=== PATIENT | male | born 1930 | race African-American/Black ===

== ENCOUNTER 2019-07-19 15:32 | Inpatient (IN) ==
[2019-07-19 16:10] LABS: Basophils # 0.1 K/mcL (0.0-0.2); Basophils % 1.1 %; Eosinophils # 0.2 K/mcL (0.0-0.6); Eosinophils % 3.2 %; Hematocrit 35.6 % (37.5-50.1); Hemoglobin 11.6 g/dL (12.9-16.9); Immature Granulocytes % 0.6 % (0-4); Lymphocytes # 1.7 K/mcL (0.6-4.6); Lymphocytes % 32.3 %; Mean Corpuscular HGB Conc 32.6 g/dL (31.6-35.5); Mean Corpuscular Hemoglobin 34.9 pg (28.0-33.3); Mean Corpuscular Volume 107.2 fL (83.0-100.0); Mean Platelet Volume 10.3 fL (9.4-12.4); Monocytes # 0.5 K/mcL (0.0-1.3); Monocytes % 9.3 %; Neutrophils # 2.8 K/mcL (1.6-8.9); Nucleated Red Blood Cells 0.8 /100 WBC (0); Platelet Count 291 K/mcL (140-400); Red Blood Count 3.32 M/mcL (4.19-5.50); Red Cell Distribution Width 13.9 % (11.5-14.5); Segmented Neutrophils % 53.5 %; White Blood Count 5.3 K/mcL (4.3-11.1)
[2019-07-19 16:10] LABS: Bilirubin,Urine Negative (Negative); Blood,Urine Negative (Negative); Clarity,Urine Clear (Clear); Color,Urine Yellow (Yellow); Glucose,Urine (UA) >=1000 mg/dL (Normal); Ketones,Urine Negative (Negative); Leukocyte Esterase,Urine Negative (Negative); Nitrite,Urine Negative (Negative); Protein,Urine Negative (Neg-Trace); Specific Gravity,Urine > 1.030 (1.010-1.025); Urobilinogen,Urine Normal (Normal)
[2019-07-19 16:20] LABS: Amphetamine Screen,Urine Negative ng/mL (Cutoff=1000); Barbiturate Screen,Urine Negative ng/mL (Cutoff=200); Benzodiazepines Screen,Urine Negative ng/mL (Cutoff=200); Cannabinoid Screen,Urine Negative ng/mL (Cutoff = 50); Cocaine Screen,Urine Negative ng/mL (Cutoff= 300); Opiate Screen,Urine Negative ng/mL (Cutoff=300); Phencyclidine Screen,Urine Negative ng/mL (Cutoff=25)
[2019-07-19 16:33] LABS: Alanine Aminotransferase 15 Units/L (7-52); Albumin 4.1 g/dL (3.5-5.7); Albumin/Globulin Ratio 1.4 (1.1-2.2); Alkaline Phosphatase 80 Units/L (34-104); Aspartate Amino Transferase 15 Units/L (13-39); BUN/Creatinine Ratio 10 (6-26); Bilirubin,Direct 0.1 mg/dL (0.0-0.2); Bilirubin,Indirect 0.3 mg/dL (0.0-1.0); Bilirubin,Total 0.4 mg/dL (0.3-1.0); Blood Urea Nitrogen 13 mg/dL (8-23); Calcium 9.4 mg/dL (8.6-10.3); Carbon Dioxide 23 mEq/L (23-29); Chloride 100 mEq/L (98-107); Glucose 409 mg/dL (70-105); Osmolality,Calculated 295 (280-300); Potassium 4.1 mEq/L (3.5-5.1); Sodium 134 mEq/L (136-145); Total Protein 7.1 g/dL (6.4-8.9); Troponin I < 0.03 ng/mL (< 0.04); eGFR For African Americans > 60 (> 60); eGFR For Non-African Americans 52 (> 60)
[2019-07-19 17:22] LABS: Ethanol < 10 mg/dL (Less than 10)
[2019-07-19] MEDS ORDERED: 0.9 % Sodium Chloride 1,000 ML IVC ONE (17:30)
[2019-07-19] MEDS ORDERED: Naloxone 0.4 MG/ML INJ IVP PRN (17:39)
[2019-07-19] MEDS ORDERED: D5% in Water 1,000 ML IVC PRN (18:04)
[2019-07-19] MEDS ORDERED: Dextrose Gel 15 GM/37.5 ML TUBE PO PRN ×2 (18:04)
[2019-07-19] MEDS ORDERED: *HR* Dextrose 50 % in Water (Syg) 50 ML SYRINGE IVP PRN (18:04)
[2019-07-19 19:04] LABS: Estimated Average Glucose 260 mg/dl
[2019-07-19] MEDS: Insulin LISPRO 300 UNITS/3 ML VIAL SQ SCH ×2 (20:06→20:17)
[2019-07-19] MEDS: QUEtiapine Fumarate 25 MG TABLET PO SCH (20:17)
[2019-07-19] MEDS: 0.9 % Sodium Chloride 1,000 ML IVC SCH (20:29)
[2019-07-19] MEDS ORDERED: *HR* LORazepam 2 MG/ML VIAL IM STA (21:24)
[2019-07-19] MEDS ORDERED: *HR* LORazepam 2 MG/ML VIAL ONE (21:26)
[2019-07-19] MEDS ORDERED: *HR* LORazepam 0.5 MG TABLET PO ONE (23:53)
[2019-07-20] MEDS ORDERED: OLANZapine 5 MG TAB.RAPDIS PO ONE (04:52)
[2019-07-20 04:56] LABS: Basophils # 0.1 K/mcL (0.0-0.2); Eosinophils # 0.3 K/mcL (0.0-0.6); Eosinophils % 4.8 %; Hematocrit 30.1 % (37.5-50.1); Immature Granulocytes % 0.5 % (0-4); Lymphocytes # 2.2 K/mcL (0.6-4.6); Lymphocytes % 38.2 %; Mean Corpuscular HGB Conc 33.2 g/dL (31.6-35.5); Mean Corpuscular Hemoglobin 35.2 pg (28.0-33.3); Mean Platelet Volume 9.7 fL (9.4-12.4); Monocytes # 0.5 K/mcL (0.0-1.3); Monocytes % 8.4 %; Neutrophils # 2.8 K/mcL (1.6-8.9); Nucleated Red Blood Cells 0.5 /100 WBC (0); Platelet Count 237 K/mcL (140-400); Red Blood Count 2.84 M/mcL (4.19-5.50); Red Cell Distribution Width 13.7 % (11.5-14.5); Segmented Neutrophils % 47.1 %; White Blood Count 5.9 K/mcL (4.3-11.1)
[2019-07-20 05:13] LABS: BUN/Creatinine Ratio 13 (6-26); Blood Urea Nitrogen 13 mg/dL (8-23); Calcium 8.6 mg/dL (8.6-10.3); Carbon Dioxide 25 mEq/L (23-29); Chloride 104 mEq/L (98-107); Glucose 165 mg/dL (70-105); Osmolality,Calculated 286 (280-300); Potassium 3.8 mEq/L (3.5-5.1); Sodium 136 mEq/L (136-145); eGFR For African Americans > 60 (> 60); eGFR For Non-African Americans > 60 (> 60)
[2019-07-20] MEDS: 0.9 % Sodium Chloride 1,000 ML IVC SCH ×2 (09:26→21:50)
[2019-07-20] MEDS: Insulin LISPRO 300 UNITS/3 ML VIAL SQ SCH ×4 (09:29→21:51)
[2019-07-20] MEDS ORDERED: Acetaminophen 325 MG TABLET PO PRN (13:17)
[2019-07-20 14:35] LABS: % Iron Saturation 25 % (20-55); Iron 69 mcg/dL (65-175); Transferrin 201 mg/dL (203-362)
[2019-07-20 14:45] LABS: Ferritin 243 ng/mL (20-250)
[2019-07-20 14:50] LABS: Folate 14.1 ng/mL (3.0-16.0)
[2019-07-20] MEDS ORDERED: OLANZapine 5 MG TAB.RAPDIS PO PRN (16:46)
[2019-07-20] MEDS: QUEtiapine Fumarate 25 MG TABLET PO SCH (21:40)
[2019-07-21] MEDS: *HR* LORazepam 2 MG/ML VIAL IM ONE ×2 (03:01→04:24)
[2019-07-21] MEDS ORDERED: *HR* LORazepam 0.5 MG TABLET PO PRN (03:30)
[2019-07-21] MEDS ORDERED: *HR* LORazepam 2 MG/ML VIAL ONE (04:09)
[2019-07-21] MEDS ORDERED: *HR* LORazepam 2 MG/ML VIAL IVP ONE (04:42)
[2019-07-21] MEDS ORDERED: OLANZapine 5 MG TAB.RAPDIS PO SCH (05:00)
[2019-07-21] MEDS: Insulin LISPRO 300 UNITS/3 ML VIAL SQ SCH ×4 (10:36→21:03)
[2019-07-21] MEDS: lisinopriL 5 MG TABLET PO SCH (13:16)
[2019-07-21] MEDS: Metoprolol XL (24 HR) Succ 25 MG TAB.ER.24H PO SCH (13:17)
[2019-07-21] MEDS: Cyanocobalamin (B-12) 1,000 MCG TABLET PO SCH (13:17)
[2019-07-21] MEDS: Aspirin Enteric Coated 81 MG Tablet PO SCH (13:17)
[2019-07-21] MEDS: QUEtiapine Fumarate 25 MG TABLET PO SCH ×2 (13:17→21:02)
[2019-07-22] MEDS: Haloperidol Lactate 5 MG/ML VIAL IM PRN ×3 (01:30→21:56)
[2019-07-22] MEDS: Insulin LISPRO 300 UNITS/3 ML VIAL SQ SCH ×3 (07:59→16:59)
[2019-07-22] MEDS: Aspirin Enteric Coated 81 MG Tablet PO SCH (08:00)
[2019-07-22] MEDS: lisinopriL 5 MG TABLET PO SCH (08:00)
[2019-07-22] MEDS: QUEtiapine Fumarate 25 MG TABLET PO SCH ×2 (08:01→19:57)
[2019-07-22] MEDS: Metoprolol XL (24 HR) Succ 25 MG TAB.ER.24H PO SCH (08:01)
[2019-07-22] MEDS: Cyanocobalamin (B-12) 1,000 MCG TABLET PO SCH (08:01)
[2019-07-22 20:13] VITALS: BP 125/75
== END 2019-07-22 21:58 | DRG 57 ==
LOC: EMEROOARM 15:32 → 3ANU 15:32 → SUATTDRO 18:00 → 3ANU 18:46
PROVIDERS: ADMIT Internal Medicine; ATTEND Family Medicine

== ENCOUNTER 2019-09-08 22:36 | Inpatient (IN) ==
[2019-09-08 23:42] LABS: Bilirubin,Urine Small (Negative); Blood,Urine Large (Negative); Clarity,Urine Clear (Clear); Color,Urine Yellow (Yellow); Glucose,Urine (UA) Normal (Normal); Ketones,Urine Trace mg/dL (Negative); Leukocyte Esterase,Urine Negative (Negative); Nitrite,Urine Negative (Negative); Protein,Urine Trace mg/dL (Neg-Trace); Specific Gravity,Urine 1.026 (1.010-1.025); Urobilinogen,Urine Normal (Normal)
[2019-09-08 23:42] LABS: Amphetamine Screen,Urine Negative ng/mL (Cutoff=1000); Barbiturate Screen,Urine Negative ng/mL (Cutoff=200); Benzodiazepines Screen,Urine Negative ng/mL (Cutoff=200); Cannabinoid Screen,Urine Negative ng/mL (Cutoff = 50); Cocaine Screen,Urine Negative ng/mL (Cutoff= 300); Opiate Screen,Urine Negative ng/mL (Cutoff=300); Phencyclidine Screen,Urine Negative ng/mL (Cutoff=25)
[2019-09-08 23:50] LABS: Bacteria,Urine None Seen per hpf (None-Few); Hyaline Casts,Urine Few per lpf (None-Few); Squamous Epithelial Cell,Urine Many per lpf (None-Few)
[2019-09-09 00:02] LABS: RBC,Urine 0-3 per hpf (0-3); WBC,Urine TNTC per hpf (0-3)
[2019-09-09 00:02] LABS: Basophils % 0.6 %; Eosinophils # 0.1 K/mcL (0.0-0.6); Eosinophils % 1.6 %; Hematocrit 28.6 % (37.5-50.1); Hemoglobin 8.9 g/dL (12.9-16.9); Immature Granulocytes % 0.6 % (0-4); Lymphocytes % 15.1 %; Mean Corpuscular HGB Conc 31.1 g/dL (31.6-35.5); Mean Corpuscular Hemoglobin 34.4 pg (28.0-33.3); Mean Corpuscular Volume 110.4 fL (83.0-100.0); Mean Platelet Volume 11.2 fL (9.4-12.4); Monocytes # 0.5 K/mcL (0.0-1.3); Monocytes % 8.5 %; Neutrophils # 4.7 K/mcL (1.6-8.9); Nucleated Red Blood Cells 0.5 /100 WBC (0); Platelet Count 156 K/mcL (140-400); Red Blood Count 2.59 M/mcL (4.19-5.50); Red Cell Distribution Width 16.7 % (11.5-14.5); Segmented Neutrophils % 73.6 %; White Blood Count 6.4 K/mcL (4.3-11.1)
[2019-09-09 00:28] LABS: Acetaminophen < 10 mcg/mL (10-20); Ethanol < 10 mg/dL (Less than 10); Salicylate < 2.5 mg/dL (15.0-30.0); Troponin I < 0.03 ng/mL (< 0.04)
[2019-09-09 00:38] LABS: Anisocytosis 1+ (Not Present); Macrocytosis Present (Not Present)
[2019-09-09 00:39] LABS: Platelet Estimate Normal (Normal)
[2019-09-09 00:41] LABS: BUN/Creatinine Ratio 22 (6-26); Blood Urea Nitrogen 28 mg/dL (8-23); Calcium 8.8 mg/dL (8.6-10.3); Carbon Dioxide 25 mEq/L (23-29); Chloride 100 mEq/L (98-107); Glucose 180 mg/dL (70-105); Osmolality,Calculated 288 (280-300); Potassium 5.9 mEq/L (3.5-5.1); Sodium 134 mEq/L (136-145); eGFR For African Americans > 60 (> 60); eGFR For Non-African Americans 53 (> 60)
[2019-09-09] MEDS ORDERED: Haloperidol Lactate 5 MG/ML VIAL IM STA ×2 (01:07→16:22)
[2019-09-09] MEDS ORDERED: Cefdinir 300 MG CAPSULE PO ONE (02:17)
[2019-09-09 02:42] LABS: BUN/Creatinine Ratio 22 (6-26); Blood Urea Nitrogen 27 mg/dL (8-23); Calcium 9.1 mg/dL (8.6-10.3); Carbon Dioxide 26 mEq/L (23-29); Chloride 100 mEq/L (98-107); Glucose 163 mg/dL (70-105); Osmolality,Calculated 285 (280-300); Potassium 5.4 mEq/L (3.5-5.1); Sodium 133 mEq/L (136-145); eGFR For African Americans > 60 (> 60); eGFR For Non-African Americans 55 (> 60)
[2019-09-09] MEDS ORDERED: Naloxone 0.4 MG/ML INJ IVP PRN (04:45)
[2019-09-09] MEDS ORDERED: *HR* Dextrose 50 % in Water (Syg) 50 ML SYRINGE IVP PRN (04:48)
[2019-09-09] MEDS ORDERED: Dextrose Gel 15 GM/37.5 ML TUBE PO PRN ×2 (04:48)
[2019-09-09] MEDS ORDERED: D5% in Water 1,000 ML IVC PRN (04:48)
[2019-09-09] MEDS: Insulin LISPRO 300 UNITS/3 ML VIAL SQ SCH ×4 (08:05→20:17)
[2019-09-09] MEDS: risperiDONE 1 MG TABLET PO SCH (09:19)
[2019-09-09] MEDS: QUEtiapine Fumarate 25 MG TABLET PO SCH ×2 (09:19→20:10)
[2019-09-09] MEDS: Aspirin Enteric Coated 81 MG Tablet PO SCH (09:19)
[2019-09-09] MEDS: Metoprolol XL (24 HR) Succ 25 MG TAB.ER.24H PO SCH (09:19)
[2019-09-09] MEDS: Cyanocobalamin (B-12) 1,000 MCG TABLET PO SCH (09:19)
[2019-09-09 09:37] LABS: BUN/Creatinine Ratio 21 (6-26); Blood Urea Nitrogen 24 mg/dL (8-23); Calcium 9.2 mg/dL (8.6-10.3); Carbon Dioxide 27 mEq/L (23-29); Chloride 99 mEq/L (98-107); Glucose 136 mg/dL (70-105); Osmolality,Calculated 282 (280-300); Potassium 4.9 mEq/L (3.5-5.1); Sodium 133 mEq/L (136-145); eGFR For African Americans > 60 (> 60); eGFR For Non-African Americans > 60 (> 60)
[2019-09-09] MEDS ORDERED: *HR* LORazepam 1 MG TABLET PO ONE (15:32)
[2019-09-09] MEDS ORDERED: *HR* LORazepam 2 MG/ML VIAL IM STA (15:37)
[2019-09-09] MEDS ORDERED: *HR* LORazepam 2 MG/ML VIAL ONE (15:38)
[2019-09-09] MEDS: Cefdinir 300 MG CAPSULE PO SCH (16:29)
[2019-09-09] MEDS ORDERED: Haloperidol Lactate 5 MG/ML VIAL IM ONE (18:30)
[2019-09-09] MEDS: traZODone 50 MG TABLET PO SCH (20:10)
[2019-09-09] MEDS: Divalproex (24 HR) 500 MG TABLET PO SCH (20:10)
[2019-09-10] MEDS: Cefdinir 300 MG CAPSULE PO SCH ×2 (04:10→15:16)
[2019-09-10] MEDS ORDERED: *HR* LORazepam 2 MG/ML VIAL IM STA (04:22)
[2019-09-10] MEDS: Metoprolol XL (24 HR) Succ 25 MG TAB.ER.24H PO SCH ×2 (09:33→09:47)
[2019-09-10] MEDS: risperiDONE 1 MG TABLET PO SCH ×2 (09:33→09:47)
[2019-09-10] MEDS: Aspirin Enteric Coated 81 MG Tablet PO SCH ×2 (09:34→09:47)
[2019-09-10] MEDS: Cyanocobalamin (B-12) 1,000 MCG TABLET PO SCH ×2 (09:34→09:48)
[2019-09-10] MEDS: Insulin LISPRO 300 UNITS/3 ML VIAL SQ SCH ×4 (09:34→20:33)
[2019-09-10] MEDS: QUEtiapine Fumarate 25 MG TABLET PO SCH ×3 (09:36→20:33)
[2019-09-10] MEDS: Haloperidol Lactate 5 MG/ML VIAL IM PRN ×3 (09:55→23:15)
[2019-09-10] MEDS: *HR* LORazepam 2 MG/ML VIAL IM PRN ×3 (11:23→23:16)
[2019-09-10] MEDS: Divalproex (24 HR) 500 MG TABLET PO SCH (20:33)
[2019-09-10] MEDS: traZODone 50 MG TABLET PO SCH (20:33)
[2019-09-11 02:45] LABS: Hematocrit 30.5 % (37.5-50.1); Hemoglobin 9.7 g/dL (12.9-16.9); Mean Corpuscular HGB Conc 31.8 g/dL (31.6-35.5); Mean Corpuscular Hemoglobin 33.8 pg (28.0-33.3); Mean Corpuscular Volume 106.3 fL (83.0-100.0); Mean Platelet Volume 11.1 fL (9.4-12.4); Platelet Count 167 K/mcL (140-400); Red Blood Count 2.87 M/mcL (4.19-5.50); Red Cell Distribution Width 15.7 % (11.5-14.5); White Blood Count 4.3 K/mcL (4.3-11.1)
[2019-09-11] MEDS: Cefdinir 300 MG CAPSULE PO SCH ×2 (02:57→15:28)
[2019-09-11 03:05] LABS: BUN/Creatinine Ratio 17 (6-26); Blood Urea Nitrogen 17 mg/dL (8-23); Calcium 8.8 mg/dL (8.6-10.3); Carbon Dioxide 24 mEq/L (23-29); Chloride 103 mEq/L (98-107); Glucose 129 mg/dL (70-105); Osmolality,Calculated 283 (280-300); Potassium 4.4 mEq/L (3.5-5.1); Sodium 135 mEq/L (136-145); eGFR For African Americans > 60 (> 60); eGFR For Non-African Americans > 60 (> 60)
[2019-09-11] MEDS: Haloperidol Lactate 5 MG/ML VIAL IM PRN ×2 (03:22→16:55)
[2019-09-11] MEDS: *HR* LORazepam 2 MG/ML VIAL IM PRN ×2 (03:22→16:56)
[2019-09-11] MEDS: QUEtiapine Fumarate 25 MG TABLET PO SCH ×2 (08:37→21:08)
[2019-09-11] MEDS: risperiDONE 1 MG TABLET PO SCH (08:37)
[2019-09-11] MEDS: Metoprolol XL (24 HR) Succ 25 MG TAB.ER.24H PO SCH (08:38)
[2019-09-11] MEDS: Aspirin Enteric Coated 81 MG Tablet PO SCH (08:38)
[2019-09-11] MEDS: Cyanocobalamin (B-12) 1,000 MCG TABLET PO SCH (08:38)
[2019-09-11] MEDS: Insulin LISPRO 300 UNITS/3 ML VIAL SQ SCH ×4 (08:46→20:28)
[2019-09-11] MEDS: traZODone 50 MG TABLET PO SCH (21:08)
[2019-09-11] MEDS: Divalproex (24 HR) 500 MG TABLET PO SCH (21:08)
[2019-09-12] MEDS: Haloperidol Lactate 5 MG/ML VIAL IM PRN ×2 (01:53→05:55)
[2019-09-12] MEDS: Cefdinir 300 MG CAPSULE PO SCH ×2 (01:53→19:58)
[2019-09-12] MEDS: *HR* LORazepam 2 MG/ML VIAL IM PRN ×4 (01:54→18:50)
[2019-09-12] MEDS: Insulin LISPRO 300 UNITS/3 ML VIAL SQ SCH ×4 (07:23→19:59)
[2019-09-12] MEDS: risperiDONE 1 MG TABLET PO SCH (10:37)
[2019-09-12] MEDS: QUEtiapine Fumarate 25 MG TABLET PO SCH ×2 (10:38→19:58)
[2019-09-12] MEDS: Metoprolol XL (24 HR) Succ 25 MG TAB.ER.24H PO SCH (10:38)
[2019-09-12] MEDS: Cyanocobalamin (B-12) 1,000 MCG TABLET PO SCH (10:39)
[2019-09-12] MEDS: Aspirin Enteric Coated 81 MG Tablet PO SCH (10:39)
[2019-09-12] MEDS: Divalproex (24 HR) 500 MG TABLET PO SCH (19:58)
[2019-09-12] MEDS: traZODone 50 MG TABLET PO SCH (19:58)
[2019-09-12] MEDS ORDERED: cephALEXin 500 MG CAPSULE PO SCH (21:00)
[2019-09-13] MEDS: *HR* LORazepam 2 MG/ML VIAL IM PRN ×4 (01:55→20:34)
[2019-09-13] MEDS: Insulin LISPRO 300 UNITS/3 ML VIAL SQ SCH ×4 (07:09→20:18)
[2019-09-13] MEDS: risperiDONE 1 MG TABLET PO SCH (11:04)
[2019-09-13] MEDS: Metoprolol XL (24 HR) Succ 25 MG TAB.ER.24H PO SCH (11:05)
[2019-09-13] MEDS: Aspirin Enteric Coated 81 MG Tablet PO SCH (11:09)
[2019-09-13] MEDS: Cefdinir 300 MG CAPSULE PO SCH ×2 (11:09→20:17)
[2019-09-13] MEDS: Cyanocobalamin (B-12) 1,000 MCG TABLET PO SCH (11:09)
[2019-09-13] MEDS: QUEtiapine Fumarate 25 MG TABLET PO SCH ×2 (12:33→20:17)
[2019-09-13] MEDS: Nitrofurantoin (BID) 100 MG CAPSULE PO SCH (17:07)
[2019-09-13] MEDS: traZODone 50 MG TABLET PO SCH (20:17)
[2019-09-13] MEDS: Divalproex (24 HR) 500 MG TABLET PO SCH (20:17)
[2019-09-14] MEDS: Haloperidol Lactate 5 MG/ML VIAL IM PRN (01:00)
[2019-09-14 02:00] LABS: Hematocrit 34.9 % (37.5-50.1); Hemoglobin 11.1 g/dL (12.9-16.9); Mean Corpuscular HGB Conc 31.8 g/dL (31.6-35.5); Mean Corpuscular Hemoglobin 33.5 pg (28.0-33.3); Mean Corpuscular Volume 105.4 fL (83.0-100.0); Mean Platelet Volume 10.3 fL (9.4-12.4); Platelet Count 231 K/mcL (140-400); Red Blood Count 3.31 M/mcL (4.19-5.50); Red Cell Distribution Width 15.5 % (11.5-14.5); White Blood Count 5.6 K/mcL (4.3-11.1)
[2019-09-14 02:20] LABS: BUN/Creatinine Ratio 19 (6-26); Blood Urea Nitrogen 20 mg/dL (8-23); Calcium 9.1 mg/dL (8.6-10.3); Carbon Dioxide 21 mEq/L (23-29); Chloride 102 mEq/L (98-107); Glucose 118 mg/dL (70-105); Osmolality,Calculated 282 (280-300); Potassium 4.9 mEq/L (3.5-5.1); Sodium 134 mEq/L (136-145); eGFR For African Americans > 60 (> 60); eGFR For Non-African Americans > 60 (> 60)
[2019-09-14] MEDS: Nitrofurantoin (BID) 100 MG CAPSULE PO SCH ×2 (12:00→16:09)
[2019-09-14] MEDS: Insulin LISPRO 300 UNITS/3 ML VIAL SQ SCH ×4 (12:00→20:49)
[2019-09-14] MEDS: Aspirin Enteric Coated 81 MG Tablet PO SCH (12:01)
[2019-09-14] MEDS: Metoprolol XL (24 HR) Succ 25 MG TAB.ER.24H PO SCH (12:02)
[2019-09-14] MEDS: risperiDONE 1 MG TABLET PO SCH (12:02)
[2019-09-14] MEDS: Cefdinir 300 MG CAPSULE PO SCH ×2 (12:02→20:52)
[2019-09-14] MEDS: QUEtiapine Fumarate 25 MG TABLET PO SCH ×2 (12:02→20:47)
[2019-09-14] MEDS: lisinopriL 5 MG TABLET PO SCH (12:03)
[2019-09-14] MEDS: Cyanocobalamin (B-12) 1,000 MCG TABLET PO SCH (12:03)
[2019-09-14] MEDS: *HR* LORazepam 2 MG/ML VIAL IVP PRN (15:19)
[2019-09-14] MEDS: Haloperidol Lactate 5 MG/ML VIAL IVP PRN (15:35)
[2019-09-14] MEDS: traZODone 50 MG TABLET PO SCH (20:49)
[2019-09-14] MEDS: Divalproex (24 HR) 500 MG TABLET PO SCH (20:53)
[2019-09-15] MEDS: *HR* LORazepam 2 MG/ML VIAL IVP PRN ×3 (01:50→22:25)
[2019-09-15] MEDS: Insulin LISPRO 300 UNITS/3 ML VIAL SQ SCH ×4 (09:35→20:33)
[2019-09-15] MEDS: Metoprolol XL (24 HR) Succ 25 MG TAB.ER.24H PO SCH (10:53)
[2019-09-15] MEDS: lisinopriL 5 MG TABLET PO SCH (10:53)
[2019-09-15] MEDS: Aspirin Enteric Coated 81 MG Tablet PO SCH (10:54)
[2019-09-15] MEDS: Cyanocobalamin (B-12) 1,000 MCG TABLET PO SCH (10:54)
[2019-09-15] MEDS: Nitrofurantoin (BID) 100 MG CAPSULE PO SCH ×2 (11:02→16:22)
[2019-09-15] MEDS: Cefdinir 300 MG CAPSULE PO SCH (11:16)
[2019-09-15] MEDS: risperiDONE 1 MG TABLET PO SCH (11:16)
[2019-09-15] MEDS: QUEtiapine Fumarate 25 MG TABLET PO SCH ×3 (11:16→23:39)
[2019-09-15] MEDS ORDERED: QUEtiapine Fumarate 25 MG TABLET PO SCH (18:00)
[2019-09-15] MEDS: traZODone 50 MG TABLET PO SCH ×2 (20:44→23:39)
[2019-09-15] MEDS: Divalproex (24 HR) 500 MG TABLET PO SCH ×2 (20:45→23:39)
[2019-09-16] MEDS: Haloperidol Lactate 5 MG/ML VIAL IVP PRN (01:26)
[2019-09-16 01:41] LABS: Hematocrit 33.2 % (37.5-50.1); Hemoglobin 10.6 g/dL (12.9-16.9); Mean Corpuscular HGB Conc 31.9 g/dL (31.6-35.5); Mean Corpuscular Hemoglobin 33.5 pg (28.0-33.3); Mean Corpuscular Volume 105.1 fL (83.0-100.0); Mean Platelet Volume 10.3 fL (9.4-12.4); Platelet Count 285 K/mcL (140-400); Red Blood Count 3.16 M/mcL (4.19-5.50); Red Cell Distribution Width 16.1 % (11.5-14.5); White Blood Count 5.1 K/mcL (4.3-11.1)
[2019-09-16 01:54] LABS: BUN/Creatinine Ratio 18 (6-26); Blood Urea Nitrogen 21 mg/dL (8-23); Calcium 9.4 mg/dL (8.6-10.3); Carbon Dioxide 23 mEq/L (23-29); Chloride 102 mEq/L (98-107); Glucose 118 mg/dL (70-105); Osmolality,Calculated 288 (280-300); Potassium 4.3 mEq/L (3.5-5.1); Sodium 137 mEq/L (136-145); eGFR For African Americans > 60 (> 60); eGFR For Non-African Americans 59 (> 60)
[2019-09-16] MEDS: QUEtiapine Fumarate 25 MG TABLET PO SCH ×2 (07:44→21:25)
[2019-09-16] MEDS: Cyanocobalamin (B-12) 1,000 MCG TABLET PO SCH (07:44)
[2019-09-16] MEDS: lisinopriL 5 MG TABLET PO SCH (07:44)
[2019-09-16] MEDS: Metoprolol XL (24 HR) Succ 25 MG TAB.ER.24H PO SCH (07:44)
[2019-09-16] MEDS: Nitrofurantoin (BID) 100 MG CAPSULE PO SCH ×2 (07:44→17:18)
[2019-09-16] MEDS: Aspirin Enteric Coated 81 MG Tablet PO SCH (07:44)
[2019-09-16] MEDS: *HR* LORazepam 2 MG/ML VIAL IVP PRN ×3 (08:23→22:53)
[2019-09-16] MEDS: Insulin LISPRO 300 UNITS/3 ML VIAL SQ SCH ×4 (09:07→21:28)
[2019-09-16] MEDS ORDERED: QUEtiapine Fumarate 25 MG TABLET PO SCH (14:00)
[2019-09-16] MEDS: Divalproex (24 HR) 500 MG TABLET PO SCH (21:26)
[2019-09-16] MEDS: traZODone 50 MG TABLET PO SCH (21:26)
[2019-09-17] MEDS: Haloperidol Lactate 5 MG/ML VIAL IVP PRN (01:21)
[2019-09-17 04:33] VITALS: BP 150/79
[2019-09-17] MEDS: Aspirin Enteric Coated 81 MG Tablet PO SCH (09:23)
[2019-09-17] MEDS: Metoprolol XL (24 HR) Succ 25 MG TAB.ER.24H PO SCH (09:23)
[2019-09-17] MEDS: Insulin LISPRO 300 UNITS/3 ML VIAL SQ SCH (09:24)
[2019-09-17] MEDS: lisinopriL 5 MG TABLET PO SCH (09:24)
[2019-09-17] MEDS: Cyanocobalamin (B-12) 1,000 MCG TABLET PO SCH (09:24)
[2019-09-17] MEDS: QUEtiapine Fumarate 25 MG TABLET PO SCH (09:24)
[2019-09-17] MEDS: Nitrofurantoin (BID) 100 MG CAPSULE PO SCH (09:24)
== END 2019-09-17 11:28 | disposition other institution (70) | DRG 690 ==
LOC: EMEROOARM 22:36 → 3BNU 22:36
PROVIDERS: ADMIT Family Medicine; ATTEND Family Medicine